=== PATIENT | male | born 1985 | race Caucasian/White ===

== ENCOUNTER 2018-10-10 18:34 | Emergency (ER) | payer OTHER ==
[~2018-10-10] VITALS: Ht 190.5 cm; Wt 145.2 kg
[2018-10-10 20:26] VITALS: BP 158/105
== END 2018-10-10 20:27 | disposition home or self-care (01) ==
LOC: M.ERS 18:34
DX: S61.217A Laceration without foreign body of left little finger without damage to nail, initial encounter (principal); W26.8XXA Contact with other sharp object(s), not elsewhere classified, initial encounter; Y92.810 Car as the place of occurrence of the external cause; Y93.89 Activity, other specified; Y99.8 Other external cause status